=== PATIENT | female | born 1985 | race Caucasian/White ===

== ENCOUNTER 2018-03-11 16:37 | Emergency (ER) | payer OTHER ==
[2018-03-11 16:39] VITALS: BMI 22.3
[2018-03-11 16:42] VITALS: BP 115/79; PULSE 92; TEMP 98.4
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
[2018-03-11 17:57] VITALS: RESP 16; O2SAT 98
== END 2018-03-11 17:54 | disposition home or self-care (01) ==
LOC: ED 16:37
DX: M54.5 Low back pain (principal); V49.9XXA Car occupant (driver) (passenger) injured in unspecified traffic accident, initial encounter